=== PATIENT | female | born 1985 | race Caucasian/White ===

== ENCOUNTER 2023-04-30 09:45 | Outpatient (RCR) | payer OTHER | END 2023-05-02 | disposition home or self-care (01) | LOC: WSPT | DX: M25.561 Pain in right knee (principal) ==

== ENCOUNTER 2023-06-08 08:15 | Outpatient (RCR) | payer OTHER | END 2023-07-01 | disposition home or self-care (01) | LOC: WSPT | DX: M25.561 Pain in right knee (principal) ==